=== PATIENT | female | born 1990 | race American Indian/Alaskan Native ===

== ENCOUNTER 2022-05-05 17:38 | Emergency (ER) | payer SELFPAY ==
[2022-05-05 19:09] VITALS: BP 124/78
[2022-05-05] MEDS ORDERED: oxyCODONE /ACETAMINOPHEN 5-325MG TAB PO ONE (23:52)
[2022-05-05] MEDS ORDERED: ONDANSETRON 4 MG ODT TAB PO ONE (23:52)
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
--- NOTE | 2022-05-06 00:35 | Cat Scan Report ---
CT HEAD WITHOUT CONTRAST INDICATION / CLINICAL INFORMATION: headache and head trauma. TECHNIQUE: CT head was performed without administration of intravenous contrast. All CT scans at this location are performed using CT dose reduction for ALARA by means of automated exposure control. COMPARISON: None available. FINDINGS: CEREBRAL HEMISPHERES: There is no evidence of large territorial infarction or significant abnormality of hanson-white matter differentiation. Ventricles within normal limits. No midline shift. Basal ciste rns patent. HEMORRHAGE: None. CEREBELLUM / BRAINSTEM: No significant abnormality. ORBITS: No significant abnormality. SOFT TISSUES: No significant abnormality. SKULL: No significant abnormality. PARANASAL SINUSES / MASTOID AIR CELLS: Normal as visualized. ADDITIONAL FINDINGS: None. IMPRESSION: 1. No acute intracranial abnormality. Signer Name: Calvin Lin II, MD Signed: 05/06/2022 12:31 AM Workstation Name: [id number]
--- NOTE | 2022-05-06 00:58 | XRay Report ---
LEFT FOREARM 2 VIEW(S) INDICATION / CLINICAL INFORMATION: arm pain COMPARISON: None available. FINDINGS: BONES / JOINT(S): No acute fracture or subluxation. No significant arthritis. SOFT TISSUES: No significant abnormality. ADDITIONAL FINDINGS: None. IMPRESSION: 1. No acute findings. No significant abnormality. Signer Name: Calvin Lin II, MD Signed: 05/06/2022 12:56 AM Workstation Name: [id number]
--- NOTE | 2022-05-06 00:58 | XRay Report ---
BILATERAL HAND 3 VIEW(S) INDICATION / CLINICAL INFORMATION: hand pain COMPARISON: None available. FINDINGS: BONES / JOINT(S): No acute fracture or subluxation. SOFT TISSUES: No significant abnormality. ADDITIONAL FINDINGS: None. IMPRESSION: 1. No acute fracture. No significant abnormality. Signer Name: Calvin Lin II, MD Signed: 05/06/2022 12:57 AM Workstation Name: [id number]
== END 2022-05-06 03:05 | disposition home or self-care (01) ==
LOC: ED 17:38
DX: S40.022A Contusion of left upper arm, initial encounter (principal); S09.90XA Unspecified injury of head, initial encounter; M79.18 Myalgia, other site; Z79.899 Other long term (current) drug therapy; Y08.89XA Assault by other specified means, initial encounter; Y93.89 Activity, other specified; Y92.89 Other specified places as the place of occurrence of the external cause; Y99.8 Other external cause status
CPT/HCPCS: 70450; 99284; J3490; Q0162